=== PATIENT | male | born 1935 | race Caucasian/White ===

== ENCOUNTER 2019-10-10 19:25 | Emergency (ER) | payer MEDICAID ==
[~2019-10-10] VITALS: Ht 162.6 cm; Wt 70.3 kg
[2019-10-10] MEDS ORDERED: IV NORMAL SALINE 500 ML BAG IV ONE (20:00)
--- NOTE | 2019-10-10 20:00 | NUR ---
Pt kenny from [facility] s/p unwitnessed fall. Per daughter at bedside, pt has hx of alzheimer's disease and unable to recall events. Pt is c/o right hip pain. Pt is alert, yet nonverbal and unable to answer questions. Placed on monitor. Safe environment implemented.
[2019-10-10] MEDS ORDERED: HYDR28.3 TP (20:05)
[2019-10-10] MEDS ORDERED: ACET-73 PO (20:05)
[2019-10-10] MEDS ORDERED: BRIM10DR6 EACHEYE (20:05)
[2019-10-10] MEDS ORDERED: DICL100G31 TP (20:05)
[2019-10-10] MEDS ORDERED: BENZ-38 PO (20:05)
[2019-10-10] MEDS ORDERED: ACID1TAB4 PO (20:05)
[2019-10-10] MEDS ORDERED: KETO10DR3 OP (20:05)
[2019-10-10] MEDS ORDERED: MIRT15TA7 PO (20:05)
[2019-10-10] MEDS ORDERED: TAMS-3 PO (20:05)
[2019-10-10] MEDS ORDERED: ESCI10TA PO (20:05)
[2019-10-10] MEDS ORDERED: AMLO10TA7 PO (20:05)
[2019-10-10] MEDS ORDERED: ATEN25TA PO (20:05)
[2019-10-10] MEDS ORDERED: ONDA-104 PO (20:05)
[2019-10-10] MEDS ORDERED: MEMA10TA PO (20:05)
[2019-10-10] MEDS ORDERED: TRAZ-182 PO (20:05)
[2019-10-10] MEDS ORDERED: MINERAL OIL (20:05)
[2019-10-10] MEDS ORDERED: DOCU50LI PO (20:05)
[2019-10-10] MEDS ORDERED: LEVO500T90 PO (20:05)
[2019-10-10 20:09] LABS: BASOPHILS % (AUTO) 0.2 % (0.0-2.0); HEMATOCRIT 38.4 % (36.7-47.1); HEMOGLOBIN 12.5 g/dL (12.5-16.3); LYMPHOCYTES # (AUTO) 1.6 K/uL (20.0-40.0); LYMPHOCYTES % (AUTO) 11.6 % (20.5-51.5); MEAN CORPUSCULAR HEMOGLOBIN 25.8 uug (23.8-33.4); MEAN CORPUSCULAR HGB CONC 33 g/dL (32.5-36.3); MEAN CORPUSCULAR VOLUME 79.3 fL (73.0-96.2); MONOCYTES # (AUTO) 1.2 K/uL (2.0-10.0); MONOCYTES % (AUTO) 8.3 % (0.0-11.0); NEUTROPHILS # (AUTO) 11.3 K/uL (1.8-8.9); NEUTROPHILS % (AUTO) 79.9 % (38.5-71.5); PLATELET COUNT (AUTO) 267 K/uL (152-348); RED BLOOD CELL COUNT(AUTO) 4.83 MIL/uL (4.06-5.63); WHITE BLOOD COUNT (AUTO) 14.2 K/uL (3.6-10.2)
[2019-10-10 20:21] LABS: POTASSIUM 3.4 mmol/L (3.5-5.1)
[2019-10-10 20:27] LABS: BILIRUBIN,DIRECT 0.2 mg/dL (0.0-0.2); BILIRUBIN,TOTAL 0.9 mg/dL (0.2-1.0); TOTAL PROTEIN, SERUM 6.4 g/dL (6.4-8.2)
[2019-10-10] MEDS ORDERED: LIDOCAINE 2% (UROJET) 10 ML JELLY MM ONE ×2 (21:10→21:15)
[2019-10-10 21:30] LABS: *BILIRUBIN,URIN NEGATIVE (NEGATIVE); *BLOOD, URINE 2+ (NEGATIVE); *COLOR,URINE YELLOW (YELLOW); *KETONES,URINE NEGATIVE (NEGATIVE); *UROBILINOGEN,URINE 0.2 E.U./dl (NORMAL); LEUKOCYTE ESTERASE ,URINE NEGATIVE (NEGATIVE); NITRITE, URINE NEGATIVE (NEGATIVE); PH,URINE 6.5 (5.0-8.0); UGLUCOSE NEGATIVE (NEGATIVE)
[2019-10-10 21:42] LABS: *CLARITY,URINE SLIGHTLY HAZY (CLEAR)
[2019-10-10 21:44] LABS: RBC,URINE 20-50 /HPF (0-3)
[2019-10-10 21:45] LABS: MUCUS,URINE MODERATE /LPF (0-FEW); WBC,URINE 0-3 /HPF (0-3)
[2019-10-10 22:09] VITALS: BP 122/62
--- NOTE | 2019-10-10 22:10 | NUR ---
IV removed. Catheter intact and site benign. Pressure and 4x4 gauze applied to site. No bleeding noted.Patient discharged to home in stable conditon. Written and verbal after care instructions given. Patient verbalizes understanding of instructions. Patient discharged home with daughter.
== END 2019-10-10 22:11 | disposition home or self-care (01) ==
LOC: ER 19:27
DX: F03.90 Unspecified dementia, unspecified severity, without behavioral disturbance, psychotic disturbance, mood disturbance, and anxiety (principal); R93.0 Abnormal findings on diagnostic imaging of skull and head, not elsewhere classified; Z88.8 Allergy status to other drugs, medicaments and biological substances; Z79.2 Long term (current) use of antibiotics; Z79.899 Other long term (current) drug therapy; W18.39XA Other fall on same level, initial encounter; Y93.89 Activity, other specified; Y92.89 Other specified places as the place of occurrence of the external cause; Y99.8 Other external cause status
CPT/HCPCS: 36415; 70030-TC; 70450; 71045; 72125; 72170; 85025; 85730; 93005; A4663; J7040